=== PATIENT | female | born 1960 | race Caucasian/White ===

== ENCOUNTER → 2016-08-21 | Outpatient (CLI) | payer BC ==
[~2016-08-21] MED LIST: EXCEDRIN DPS1 TAB PO; LIPITOR40 MG PO; LOPRESSOR DPS50 MG PO; PREVACID15 MG PO; PROZAC DPS20 MG PO; TEMOVATE O.05%15 GM TP
== END | disposition home or self-care (01) ==
LOC: RAD.S 10:36
DX: Z12.31 Encounter for screening mammogram for malignant neoplasm of breast (principal); R92.1 Mammographic calcification found on diagnostic imaging of breast